=== PATIENT | female | born 1985 | race American Indian/Alaskan Native ===

== ENCOUNTER 2016-07-02 09:37 | Emergency (ER) | payer MEDICAID ==
[2016-07-02 10:34] LABS: Anion Gap 19 mmol/L; BUN/Creatinine Ratio 6.66; Blood Urea Nitrogen 6 mg/dL (7-17); Calcium 9.1 mg/dL (8.4-10.2); Carbon Dioxide 24 mmol/L (22-30); Chloride 100.4 mmol/L (98-107); Glucose 117 mg/dL (65-100); Potassium 3.9 mmol/L (3.6-5.0); Sodium 139 mmol/L (137-145)
--- NOTE | 2016-07-02 10:42 | Emergency Department Report ---
HPI - General Chief Complaint: Abdominal Pain Time Seen by Provider: 07/02/16 10:14 - HPI HPI: This is a 31-year-old Afro-Turkish female who presents to the emergency department from home with concern that she might be . The patient says that her last menstrual cycle was in January. Since that time, in April, she had both urine and blood tests that says she was not . However she says that her breasts have become progressively larger and more sore and that her abdomen has also become larger. She gets some intermittent nausea and vomiting, intermittent abdominal cramps or discomfort. She denies any dysuria, hematuria, vaginal bleeding or discharge, fever. She is not taken anything for her symptoms prior to presentation. She has a primary care physician in [place] but does not have a B[facility]ER. No recent travel or sick contacts at home. She has not taken anything for her symptoms prior to presentation. No known aggravating or alleviating factors. ED Past Medical Hx - Past Medical History Hx Psychiatric Treatment: Yes (ANXIETY) - Surgical History Additional Surgical History: D&C - Social History Smoking Status: Current Every Day Smoker Substance Use Type: None - Medications Home Medications: Home Medications Medication Instructions Recorded Confirmed Last Taken Type HYDROcodone/APAP 5-325 [[place] 1 each PO Q6HR PRN #10 tablet 07/02/16 Unknown Rx 5/325] ED Review of Systems ROS: Stated complaint: VOMITING/HEADACHE/POSS Other details as noted in HPI Comment: All other systems reviewed and negative Constitutional: denies: chills, fever Eyes: denies: eye pain, eye discharge, vision change ENT: denies: ear pain, throat pain Respiratory: denies: cough, shortness of breath, wheezing Cardiovascular: denies: chest pain, palpitations Gastrointestinal: abdominal pain, nausea, vomiting Genitourinary: denies: urgency, dysuria, discharge Musculoskeletal: denies: back pain, joint swelling, arthralgia Skin: denies: rash, lesions Neurological: denies: headache, weakness, paresthesias Physical Exam - Physical Exam Vital Signs: Vital Signs 07/02/16 09:51 Temperature 98.1 F Pulse Rate 86 Respiratory 17 Rate Blood Pressure 127/83 O2 Sat by Pulse 100 Oximetry Physical Exam: GENERAL: The patient is well-developed well-nourished. HEENT: Normocephalic. Atraumatic. Extraocular motions are intact. Patient has moist mucous membranes. Pupils equal reactive to light bilateral. NECK: Supple. Trach is midline. CHEST/LUNGS: Clear to auscultation. There is no respiratory distress noted. HEART/CARDIOVASCULAR: Regular. There is no tachycardia. There is no gallop rub or murmur. ABDOMEN: Abdomen is soft. There is some periumbilical abdominal discomfort that appears to be more within the abdominal wall and/or soft tissue versus peritoneal or retroperitoneal. Patient has normal bowel sounds. Patient has an obese abdomen but no obvious distention. SKIN: Skin is warm and dry. NEURO: The patient is awake, alert, and oriented. The patient is cooperative. The patient has no focal neurologic deficits. The patient has normal speech. MUSCULOSKELETAL: There is no tenderness or deformity. There is no limitation range of motion. There is no evidence of acute injury. ED Course Vital Signs 07/02/16 09:51 Temperature 98.1 F Pulse Rate 86 Respiratory 17 Rate Blood Pressure 127/83 O2 Sat by Pulse 100 Oximetry ED Medical Decision Making - Lab Data Result diagrams: 07/02/16 09:59 07/02/16 09:59 - Medical Decision Making This is a 31-year-old Afro-Turkish female presents to the emergency department with complaint of amenorrhea since January, increasing breast size and some soreness, abdominal discomfort and enlarged abdomen versus abdominal distention. Patient's labs are grossly unremarkable. There is a very mild leukocytosis of 12,000 but that is just above the normal range and there is no left shift. There are no electrolyte abnormalities, renal insufficiency, glucose abnormalities. Belly labs are normal including lipase, bilirubin, LFTs. Urinalysis does not show any urinary tract infection. The patient had negative test with both a urine qualitative and serum quantitative levels. After the was ruled out, a CT of the abdomen and pelvis was done with IV contrast that showed an ovarian cyst but otherwise no acute pathology and certainly does not show any etiology of the patient's discomfort or symptoms. Vital signs stable throughout ED course. The patient appears safe for discharge home. She's been encouraged to follow up with her primary care doctor and [facility]. She will return to the ER with any worsening of her symptoms or any acute distress. - Differential Diagnosis , malignancy, cellulitis, estrogen excess Critical Care Time: No Critical care attestation.: If time is entered above; I have spent that time in minutes in the direct care of this critically ill patient, excluding procedure time. ED Disposition Clinical Impression: Amenorrhea, Soreness breast Abdominal pain Qualifiers: Abdominal location: lower abdomen, unspecified Qualified Code(s): R10.30 - Lower abdominal pain, unspecified Disposition: DISCHARGED TO HOME OR SELFCARE Is pt being admited?: No Condition: Stable Instructions: Breast Self-exam (ED), Abdominal Pain (ED) Additional Instructions: Please follow-up with your primary care doctor in the next few days if possible. It is recommended that she follow-up with an [facility] regarding your ovarian cyst and your lack of a menstrual cycle since January. Return to the emergency department with any acute distress. You've been prescribed a medication that is sedating. Therefore this medication cannot be mixed with alcohol, or taken prior to driving, working, or being responsible for children. Prescriptions: HYDROcodone/APAP 5-325 [[place] 5/325] 1 each PO Q6HR PRN #10 tablet PRN Reason: Pain Referrals: PRIMARY CAREMD [Primary Care Provider] - 3-5 Days PIETER AYALA MD [Staff Physician] - 3-5 Days Time of Disposition: 13:51
[2016-07-02 11:01] LABS: Basophils % (Auto) 0.3 % (0.0-1.8); Hematocrit 41.2 % (30.3-42.9); Hemoglobin 13.2 gm/dl (10.1-14.3); Mean Corpuscular HGB Conc 32 % (30-34); Mean Corpuscular Hemoglobin 26 pg (28-32); Mean Corpuscular Volume 82 fl (79-97); Platelet Count 403 K/mm3 (140-440); Red Blood Count 5.05 M/mm3 (3.65-5.03); Red Cell Distribution Width 15.9 % (13.2-15.2); White Blood Count 12.8 K/mm3 (4.5-11.0)
[2016-07-02 11:07] LABS: Bilirubin,Urine NEG (Negative); Blood,Urine NEG (Negative); Ketones,Urine NEG (Negative); Leukocyte Esterase,Urine NEG (Negative); Nitrite,Urine NEG (Negative); Protein,Urine <15 mg/dL mg/dL (Negative); Urobilinogen,Urine < 2.0 mg/dL (<2.0)
[2016-07-02] MEDS ORDERED: MORPHINE IV ONE ×2 (11:45→13:49)
[2016-07-02] MEDS ORDERED: NACL ONE (12:13)
--- NOTE | 2016-07-02 13:39 | Cat Scan Report ---
CT SCAN OF THE ABDOMEN AND PELVIS WITH CONTRAST: HISTORY: Abdominal pain. TECHNIQUE: Helical CT in 1.25mm intervals following IV contrast. Sagittal and coronal reconstructions. FINDINGS: The liver is normal in size and is without focal defect. No gallstones or biliary dilatation are noted. The spleen and pancreas demonstrate a normal size and attenuation with no evidence of abnormal mass. The kidneys are normal in size and position with no evidence of hydronephrosis or mass. The adrenal glands are normal. There is no intestinal obstruction or ascites. Normal appendix. The abdominal aorta is normal. The uterus and right adnexa are unremarkable. A 2.9 x 2.4 cm cyst is identified in the left ovary. There is no evidence of peritoneal air or fluid. There is no evidence of any abnormal masses or fluid collections within the pelvis. No adenopathy is identified. The bladder is normal. IMPRESSION: 2.9 x 2.4 cm left ovarian cyst. No acute inflammatory process.
[2016-07-02 14:05] VITALS: BP 139/77
== END 2016-07-02 14:04 | disposition home or self-care (01) ==
LOC: ED 09:37
DX: N91.2 Amenorrhea, unspecified (principal); R10.30 Lower abdominal pain, unspecified; N64.4 Mastodynia; F41.9 Anxiety disorder, unspecified; F17.200 Nicotine dependence, unspecified, uncomplicated; Z88.8 Allergy status to other drugs, medicaments and biological substances
CPT/HCPCS: 36415; 74177; 80048; 81001; 82962; 84702; 84703; 85025; 96374; 96376; 99284; J2270; Q9967

== ENCOUNTER 2016-12-28 06:08 | Emergency (ER) | payer MEDICAID ==
[2016-12-28 06:54] LABS: Basophils % (Auto) 0.4 % (0.0-1.8); Hematocrit 36.1 % (30.3-42.9); Hemoglobin 11.8 gm/dl (10.1-14.3); Mean Corpuscular HGB Conc 33 % (30-34); Mean Corpuscular Hemoglobin 26 pg (28-32); Mean Corpuscular Volume 80 fl (79-97); Platelet Count 433 K/mm3 (140-440); Red Cell Distribution Width 17.7 % (13.2-15.2); White Blood Count 13.5 K/mm3 (4.5-11.0)
[2016-12-28 07:09] LABS: Anion Gap 18 mmol/L; BUN/Creatinine Ratio 11; Blood Urea Nitrogen 8 mg/dL (7-17); Calcium 8.7 mg/dL (8.4-10.2); Carbon Dioxide 20 mmol/L (22-30); Chloride 106.5 mmol/L (98-107); Glucose 108 mg/dL (65-100); Potassium 3.8 mmol/L (3.6-5.0); Sodium 141 mmol/L (137-145)
[2016-12-28 08:02] LABS: Bacteria,Urine 1+ /HPF (Negative); Bilirubin,Urine NEG (Negative); Blood,Urine SM (Negative); Ketones,Urine NEG (Negative); Leukocyte Esterase,Urine LG (Negative); Mucus,Urine FEW /HPF; Nitrite,Urine NEG (Negative); Protein,Urine <15 mg/dL mg/dL (Negative); Urobilinogen,Urine < 2.0 mg/dL (<2.0)
[2016-12-28] MEDS ORDERED: ZOFRAN ONE (08:17)
[2016-12-28] MEDS ORDERED: ZOFRAN IV ONE ×2 (08:31→10:38)
[2016-12-28] MEDS ORDERED: DILAUDID IV ONE (09:02)
[2016-12-28] MEDS ORDERED: BENADRYL IV ONE (09:02)
--- NOTE | 2016-12-28 09:54 | Cat Scan Report ---
CT ABDOMEN AND PELVIS WITH CONTRAST: 12/28/16 06:08:00 CLINICAL: Abdominal pain. COMPARISON: 07/02/16 TECHNIQUE: Volumetric acquisition and 1.25 millimeter scan reconstructions after the uneventful intravenous injection of 100 cc Omnipaque 300. Consent was obtained prior to the administration of contrast. Oral contrast was not given. FINDINGS: Abdomen: Clear lung bases.Normal liver, bile ducts and gallbladder. Normal stomach, duodenum, pancreas and spleen. Normal adrenal glands and kidneys. Normal nondilated renal collecting systems and ureters. No urinary calculus, mass or cyst. Normal aorta and inferior vena cava. Normal small bowel.Normal ascending, transverse and descending colon. The appendix is well imaged and normal. No mass, lymphadenopathy or ascites.No pneumoperitoneum. Pelvis: Normal uterus, urinary bladder and rectum. Normal ovaries with small follicles in each ovary. No adnexal mass or free fluid. Normal sigmoid colon. Bone windows demonstrate no bone lesion. IMPRESSION:Normal abdomen and pelvis.
[2016-12-28] MEDS ORDERED: IMODIUM PO ONE (10:38)
[2016-12-28] MEDS ORDERED: NACL 0.9% 1000 ML 1,000 ML IV ONE (10:38)
[2016-12-28] MEDS ORDERED: BENTYL IM ONE (10:38)
[2016-12-28 10:41] LABS: Alanine Aminotransferase 16 units/L (7-56); Albumin/Globulin Ratio 1.4 %; Alkaline Phosphatase 80 units/L (35-129); Bilirubin,Total < 0.20 mg/dL (0.1-1.2); Lipase 33 units/L (13-60); Total Protein 6.8 g/dL (6.3-8.2)
[2016-12-28 10:44] LABS: Bilirubin,Direct < 0.2 mg/dL (0-0.2)
--- NOTE | 2016-12-28 11:06 | Emergency Department Report ---
ED N/V/D HPI - General Chief complaint: Nausea/Vomiting/Diarrhea Stated complaint: ABD PAIN Time Seen by Provider: 12/28/16 10:19 Source: patient Mode of arrival: Ambulatory Limitations: No Limitations - History of Present Illness Initial comments: 31-year-old female with a history of hypertension presents to the hospital with complaints of abdominal pain, nausea, vomiting, and diarrhea 2 days. Patient had greater than 10 episodes of vomiting and even more episodes of diarrhea. She denies melena, hematochezia, hematemesis or fever. Her daughter was sick with similar symptoms last week. No travel or recent antibiotic use reported. Patient describes pain in the mid abdomen as sharp and feeling like "labor pains ". Pain is rated a sensitivity in intensity. Worse with palpation. No alleviating factors. - Related Data Previous Rx's Medication Instructions Recorded Last Taken Type Dicyclomine [Bentyl] 10 mg PO QID #16 capsule 12/28/16 Unknown Rx HYDROcodone/APAP 5-325 [[place] 1 each PO Q6HR PRN #10 tablet 12/28/16 Unknown Rx 5-325 mg TAB] Loperamide [Imodium] 2 mg PO Q2HR PRN #15 capsule 12/28/16 Unknown Rx Ondansetron [Zofran Odt] 4 mg PO Q8HR PRN #20 tab.rapdis 12/28/16 Unknown Rx Allergies Allergy/AdvReac Type Severity Reaction Status Date / Time tramadol AdvReac SHAKE/ Verified 07/02/16 09:48 TWITCH ED Review of Systems ROS: Stated complaint: ABD PAIN Other details as noted in HPI Comment: All other systems reviewed and negative Other: Constitutional: No fevers chills Eyes: No eye pain visual changes or discharge ENT: No ear pain or throat pain Neck: Denies pain Respiratory: Denies cough wheezing shortness of breath Cardiovascular: Denies chest pain, palpitations, syncope GI: As per HPI : Denies dysuria Musculoskeletal: Denies back pain, joint swelling Skin: Denies rash, lesions, erythema Neurologic: Denies headache, numbness, weakness Psychiatric: Denies suicidal ideation, hallucinations ED Past Medical Hx - Past Medical History Previous Medical History?: Yes Hx Hypertension: Yes Hx Psychiatric Treatment: Yes (ANXIETY) - Surgical History Past Surgical History?: Yes Additional Surgical History: D&C - Social History Smoking Status: Former Smoker Substance Use Type: Alcohol, Marijuana - Medications Home Medications: Home Medications Medication Instructions Recorded Confirmed Last Taken Type Dicyclomine [Bentyl] 10 mg PO QID #16 capsule 12/28/16 Unknown Rx HYDROcodone/APAP 5-325 [[place] 1 each PO Q6HR PRN #10 tablet 12/28/16 Unknown Rx 5-325 mg TAB] Loperamide [Imodium] 2 mg PO Q2HR PRN #15 capsule 12/28/16 Unknown Rx Ondansetron [Zofran Odt] 4 mg PO Q8HR PRN #20 tab.rapdis 12/28/16 Unknown Rx ED Physical Exam - General Limitations: No Limitations - Other Other exam information: General: No limitations, patient is alert in no acute distress Head exam: Atraumatic, normocephalic Eyes exam: Normal appearance, pupils equal reactive to light, extraocular movements intact ENT: Moist mucous membrane, normal oropharynx Neck exam: Normal inspection, full range of motion, no meningismus nontender Respiratory exam: Clear to auscultation bilateral, no wheezes, rales, crackles Cardiovascular: Normal rate and rhythm, normal heart sounds Abdomen: Soft, nondistended, midabdominal tenderness, with normal bowel sounds, no rebound, or guarding Extremity: Full range of motion normal inspection no deformity Back: Normal Inspection, full range of motion, no tenderness Neurologic: Alert, oriented x3, cranial nerves intact, no motor or sensory deficit Psychiatric: normal affect, normal mood Skin: Warm, dry, intact ED Course Vital Signs 12/28/16 12/28/16 12/28/16 06:15 07:47 08:00 Temperature 98.3 F Pulse Rate 99 H 87 82 Respiratory 20 20 21 Rate Blood Pressure 115/61 110/66 Blood Pressure [Right] O2 Sat by Pulse 99 99 98 Oximetry 12/28/16 12/28/16 12/28/16 08:01 08:03 11:10 Temperature 98.4 F Pulse Rate 87 82 Respiratory 17 17 14 Rate Blood Pressure Blood Pressure 110/66 125/77 [Right] O2 Sat by Pulse 100 Oximetry - Reevaluation(s) Reevaluation #1: 12/28/16 11:04 Patient received Benadryl, Zofran, and Dilaudid prior to my evaluation on for some improvement in pain for persistent pain. Nausea has improved 12/28/16 12:18 Patient's pain fairly improved until an additional dose of Zofran. Patient received some of her order IV fluids and does not want to wait for the rest. She tolerated by mouth and hydrate orally ED Medical Decision Making - Lab Data Result diagrams: 12/28/16 06:36 12/28/16 06:36 Lab Results 12/28/16 12/28/16 12/28/16 Range/Units 06:23 06:36 06:36 WBC 13.5 H (4.5-11.0) K/mm3 RBC 4.50 (3.65-5.03) M/mm3 Hgb 11.8 (10.1-14.3) gm/dl Hct 36.1 (30.3-42.9) % MCV 80 (79-97) fl MCH 26 L (28-32) pg MCHC 33 (30-34) % RDW 17.7 H (13.2-15.2) % Plt Count 433 (140-440) K/mm3 Lymph % (Auto) 32.1 (13.4-35.0) % [place] % (Auto) 4.2 (0.0-7.3) % Eos % (Auto) 1.0 (0.0-4.3) % Baso % (Auto) 0.4 (0.0-1.8) % Lymph # 4.4 (1.2-5.4) K/mm3 [place] # 0.6 (0.0-0.8) K/mm3 Eos # 0.1 (0.0-0.4) K/mm3 Baso # 0.1 (0.0-0.1) K/mm3 Seg Neutrophils % 62.3 (40.0-70.0) % Seg Neutrophils # 8.4 H (1.8-7.7) K/mm3 Sodium 141 (137-145) mmol/L Potassium 3.8 (3.6-5.0) mmol/L Chloride 106.5 (98-107) mmol/L Carbon Dioxide 20 L (22-30) mmol/L Anion Gap 18 mmol/L BUN 8 (7-17) mg/dL Creatinine 0.7 (0.7-1.2) mg/dL Estimated GFR > 60 ml/min BUN/Creatinine Ratio 11 % Glucose 108 H (65-100) mg/dL POC Glucose 99 (70-105) Calcium 8.7 (8.4-10.2) mg/dL Total Bilirubin (0.1-1.2) mg/dL Direct Bilirubin (0-0.2) mg/dL AST (5-40) units/L ALT (7-56) units/L Alkaline Phosphatase (35-129) units/L Total Protein (6.3-8.2) g/dL Albumin (3.9-5) g/dL Albumin/Globulin Ratio % Lipase (13-60) units/L HCG, Quant (0-4) mIU/mL Urine Color (Yellow) Urine Turbidity (Clear) Urine pH (5.0-7.0) Ur Specific [place] (1.003-1.030) Urine Protein (Negative) mg/dL Urine Glucose (UA) (Negative) mg/dL Urine Ketones (Negative) mg/dL Urine Blood (Negative) Urine Nitrite (Negative) Urine Bilirubin (Negative) Urine Urobilinogen (<2.0) mg/dL Ur Leukocyte Esterase (Negative) Urine WBC (Auto) (0.0-6.0) /HPF Urine RBC (Auto) (0.0-6.0) /HPF U Epithel Cells (Auto) (0-13.0) /HPF Urine Bacteria (Auto) (Negative) /HPF Urine Mucus /HPF 12/28/16 12/28/16 12/28/16 Range/Units 06:36 06:36 07:39 WBC (4.5-11.0) K/mm3 RBC (3.65-5.03) M/mm3 Hgb (10.1-14.3) gm/dl Hct (30.3-42.9) % MCV (79-97) fl MCH (28-32) pg MCHC (30-34) % RDW (13.2-15.2) % Plt Count (140-440) K/mm3 Lymph % (Auto) (13.4-35.0) % [place] % (Auto) (0.0-7.3) % Eos % (Auto) (0.0-4.3) % Baso % (Auto) (0.0-1.8) % Lymph # (1.2-5.4) K/mm3 [place] # (0.0-0.8) K/mm3 Eos # (0.0-0.4) K/mm3 Baso # (0.0-0.1) K/mm3 Seg Neutrophils % (40.0-70.0) % Seg Neutrophils # (1.8-7.7) K/mm3 Sodium (137-145) mmol/L Potassium (3.6-5.0) mmol/L Chloride (98-107) mmol/L Carbon Dioxide (22-30) mmol/L Anion Gap mmol/L BUN (7-17) mg/dL Creatinine (0.7-1.2) mg/dL Estimated GFR ml/min BUN/Creatinine Ratio % Glucose (65-100) mg/dL POC Glucose (70-105) Calcium (8.4-10.2) mg/dL Total Bilirubin < 0.20 (0.1-1.2) mg/dL Direct Bilirubin < 0.2 (0-0.2) mg/dL AST 19 (5-40) units/L ALT 16 (7-56) units/L Alkaline Phosphatase 80 (35-129) units/L Total Protein 6.8 (6.3-8.2) g/dL Albumin 4.0 (3.9-5) g/dL Albumin/Globulin Ratio 1.4 % Lipase 33 (13-60) units/L HCG, Quant < 2 (0-4) mIU/mL Urine Color Yellow (Yellow) Urine Turbidity Clear (Clear) Urine pH 5.0 (5.0-7.0) Ur Specific [place] 1.020 (1.003-1.030) Urine Protein <15 mg/dl (Negative) mg/dL Urine Glucose (UA) Neg (Negative) mg/dL Urine Ketones Neg (Negative) mg/dL Urine Blood Sm (Negative) Urine Nitrite Neg (Negative) Urine Bilirubin Neg (Negative) Urine Urobilinogen < 2.0 (<2.0) mg/dL Ur Leukocyte Esterase Lg (Negative) Urine WBC (Auto) 5.0 (0.0-6.0) /HPF Urine RBC (Auto) 9.0 (0.0-6.0) /HPF U Epithel Cells (Auto) 16.0 H (0-13.0) /HPF Urine Bacteria (Auto) 1+ (Negative) /HPF Urine Mucus Few /HPF - Radiology Data Radiology results: report reviewed (CT abdomen and pelvis IV contrast: Normal) - Medical Decision Making Plan to discharge patient home with symptomatic for gastroenteritis. Labs and CT unremarkable. Patient felt much better with ED treatment and tolerating by mouth. - Differential Diagnosis gastroenteritis, appendicitis, hepatitis, Critical Care Time: No Critical care attestation.: If time is entered above; I have spent that time in minutes in the direct care of this critically ill patient, excluding procedure time. ED Disposition Clinical Impression: Gastroenteritis Disposition: DC-01 TO HOME OR SELFCARE Is pt being admited?: No Does the pt Need Aspirin: No Condition: Stable Instructions: Gastroenteritis (ED) Additional Instructions: Taken the medication as prescribed. Return if symptoms worsen. Follow-up with the primary care doctor or clinic for further evaluation. Prescriptions: Dicyclomine [Bentyl] 10 mg PO QID #16 capsule HYDROcodone/APAP 5-325 [[place] 5-325 mg TAB] 1 each PO Q6HR PRN #10 tablet PRN Reason: Pain Loperamide [Imodium] 2 mg PO Q2HR PRN #15 capsule PRN Reason: Diarrhea Ondansetron [Zofran Odt] 4 mg PO Q8HR PRN #20 tab.rapdis PRN Reason: Acne Referrals: REEMA RUBIN [Other] - 3-5 Days Time of Disposition: 12:24
[2016-12-28 12:23] VITALS: BP 119/68
== END 2016-12-28 12:48 | disposition home or self-care (01) ==
LOC: ED 06:08
DX: K21.9 Gastro-esophageal reflux disease without esophagitis (principal); I10 Essential (primary) hypertension; F12.10 Cannabis abuse, uncomplicated; F17.200 Nicotine dependence, unspecified, uncomplicated; Z88.6 Allergy status to analgesic agent
CPT/HCPCS: 36415; 74177; 80048; 80074; 81001; 82962; 83690; 84702; 85025; 96361; 96372; 96374; 96375; 96376; 99284; J0500; J1170; J1200; J2405; J7030; Q9967

== ENCOUNTER 2019-01-03 18:56 | Emergency (ER) | payer MEDICAID, SELFPAY ==
--- NOTE | 2019-01-03 19:09 | Event Note ---
ED Screening Note Date of service: 01/03/19 Time: 19:03 ED Screening Note: Reports nausea and vomitting that started this morning. Reports diarrhea x 6 today. Vomit x 8 today and cannot keep water down, Reports chills. Reports abdominal pain all over stomach. Reports that she ate [employer]. LMP . Gen:A&O x3 nad VSS, afeb ABD: soft,mild tenderness to palpate . NL BS Nausea/vomitting/diarrhea abdominal pain This initial assessment/diagnostic orders/clinical plan/treatment(s) is/are subject to change based on patients health status, clinical progression and re- assessment by fellow clinical providers in the ED. Further treatment and workup at subsequent clinical providers discretion. Patient/guardian urged not to elope from the ED as their condition may be serious if not clinically assessed and managed. Initial orders include: labs
[2019-01-03] MEDS ORDERED: ONDANSETRON 4 MG/2 ML INJ IV ONE (19:46)
[2019-01-03] MEDS ORDERED: SODIUM CHLORIDE 0.9% 1000 ML 1,000 ML IV ONE (19:46)
[2019-01-03] MEDS ORDERED: MORPHINE 4 MG/1 ML INJ IV ONE (19:46)
[2019-01-03 20:11] LABS: Basophils % (Auto) 0.4 % (0.0-1.8); Eosinophils # (Auto) 0.1 K/mm3 (0.0-0.4); Eosinophils % (Auto) 0.6 % (0.0-4.3); Hematocrit 36.3 % (30.3-42.9); Hemoglobin 11.6 gm/dl (10.1-14.3); Lymphocytes # (Auto) 3.8 K/mm3 (1.2-5.4); Lymphocytes % (Auto) 29.3 % (13.4-35.0); Mean Corpuscular HGB Conc 32 % (30-34); Mean Corpuscular Volume 76 fl (79-97); Monocytes # (Auto) 0.4 K/mm3 (0.0-0.8); Monocytes % (Auto) 3.2 % (0.0-7.3); Platelet Count 412 K/mm3 (140-440); Red Blood Count 4.79 M/mm3 (3.65-5.03)
[2019-01-03 20:19] LABS: Bilirubin,Urine NEG (Negative); Blood,Urine NEG (Negative); Color,Urine Amber (Yellow); Mucus,Urine 3+ /HPF
[2019-01-03 20:22] LABS: Red Cell Distribution Width 20.3 % (13.2-15.2)
[2019-01-03 20:27] LABS: Alanine Aminotransferase 17 units/L (7-56); Albumin 3.9 g/dL (3.9-5); BUN/Creatinine Ratio 7; Blood Urea Nitrogen 8 mg/dL (7-17); Calcium 8.8 mg/dL (8.4-10.2); Hemolysis Index 5
--- NOTE | 2019-01-03 20:41 | Emergency Department Report ---
ED N/V/D HPI - General Chief complaint: Nausea/Vomiting/Diarrhea Stated complaint: FLU SX Time Seen by Provider: 01/03/19 19:02 Source: patient Mode of arrival: Ambulatory Limitations: No Limitations - History of Present Illness Initial comments: Reports nausea and vomiting that started this morning. Reports diarrhea x 6 today. Vomit x 8 today and cannot keep water down, Reports chills. Reports abdominal pain all over stomach. Reports that she ate Gambino. LMP 12/28/2018. complaint: nausea, vomiting, diarrhea -: This morning Description of Vomiting: food contents Description of Diarrhea: water Associated Abdominal Pain: Yes Location: diffuse Severity: severe Pain Scale: 8 Quality: cramping, aching, sharp Consistency: constant Improves with: eating Worsens with: none Associated Symptoms: fever/chills (chills), nausea/vomiting - Related Data Previous Rx's Medication Instructions Recorded Last Taken Type Dicyclomine [Bentyl] 10 mg PO QID #16 capsule 12/28/16 Unknown Rx HYDROcodone/APAP 5-325 [[place] 1 each PO Q6HR PRN #10 tablet 12/28/16 Unknown Rx 5-325 mg TAB] Loperamide [Imodium] 2 mg PO Q2HR PRN #15 capsule 12/28/16 Unknown Rx Ondansetron [Zofran Odt] 4 mg PO Q8HR PRN #20 tab.rapdis 12/28/16 Unknown Rx Ondansetron [Zofran Odt] 4 mg PO Q8HR PRN #6 tab.rapdis 01/03/19 Unknown Rx Allergies Allergy/AdvReac Type Severity Reaction Status Date / Time tramadol AdvReac SHAKE/ Verified 07/02/16 09:48 TWITCH ED Review of Systems ROS: Stated complaint: FLU SX Other details as noted in HPI Comment: All other systems reviewed and negative ED Past Medical Hx - Past Medical History Previous Medical History?: Yes Hx Hypertension: Yes Hx Psychiatric Treatment: Yes (ANXIETY) - Surgical History Past Surgical History?: Yes Additional Surgical History: D&C - Social History Smoking Status: Former Smoker Substance Use Type: None - Medications Home Medications: Home Medications Medication Instructions Recorded Confirmed Last Taken Type Dicyclomine [Bentyl] 10 mg PO QID #16 capsule 12/28/16 Unknown Rx HYDROcodone/APAP 5-325 [[place] 1 each PO Q6HR PRN #10 tablet 12/28/16 Unknown Rx 5-325 mg TAB] Loperamide [Imodium] 2 mg PO Q2HR PRN #15 capsule 12/28/16 Unknown Rx Ondansetron [Zofran Odt] 4 mg PO Q8HR PRN #20 tab.rapdis 12/28/16 Unknown Rx Ondansetron [Zofran Odt] 4 mg PO Q8HR PRN #6 tab.rapdis 01/03/19 Unknown Rx ED Physical Exam - General Limitations: No Limitations General appearance: alert, in no apparent distress - Head Head exam: Present: atraumatic, normocephalic - Eye Eye exam: Present: normal appearance - ENT ENT exam: Present: mucous membranes moist - Neck Neck exam: Present: normal inspection - Respiratory Respiratory exam: Present: normal lung sounds bilaterally. Absent: respiratory distress - Cardiovascular Cardiovascular Exam: Present: regular rate, normal rhythm. Absent: systolic murmur, diastolic murmur, rubs, gallop - GI/Abdominal GI/Abdominal exam: Present: soft, normal bowel sounds. Absent: distended, tenderness - Extremities Exam Extremities exam: Present: normal inspection - Back Exam Back exam: Present: normal inspection - Neurological Exam Neurological exam: Present: alert, oriented X3, normal gait - Psychiatric Psychiatric exam: Present: normal affect, normal mood - Skin Skin exam: Present: warm, dry, intact, normal color. Absent: rash ED Course Vital Signs 01/03/19 01/03/19 01/03/19 19:08 20:18 20:48 Temperature 98.2 F Pulse Rate 76 Respiratory 18 16 16 Rate Blood Pressure 134/89 O2 Sat by Pulse 100 Oximetry 01/03/19 21:47 Temperature Pulse Rate Respiratory 16 Rate Blood Pressure O2 Sat by Pulse Oximetry ED Medical Decision Making - Lab Data Result diagrams: 01/03/19 19:48 01/03/19 19:48 Laboratory Results - last 72 hr 01/03/19 01/03/19 01/03/19 19:48 19:48 19:48 WBC 12.9 H RBC 4.79 Hgb 11.6 Hct 36.3 MCV 76 L MCH 24 L MCHC 32 RDW 20.3 H Plt Count 412 Lymph % (Auto) 29.3 [place] % (Auto) 3.2 Eos % (Auto) 0.6 Baso % (Auto) 0.4 Lymph # 3.8 [place] # 0.4 Eos # 0.1 Baso # 0.0 Seg Neutrophils % 66.5 Seg Neutrophils # 8.6 H Sodium 137 Potassium 3.6 Chloride 103.9 Carbon Dioxide 21 L Anion Gap 16 BUN 8 Creatinine 1.1 Estimated GFR > 60 BUN/Creatinine Ratio 7 Glucose 115 H Calcium 8.8 Total Bilirubin 0.20 AST 20 ALT 17 Alkaline Phosphatase 63 Total Protein 6.5 Albumin 3.9 Albumin/Globulin Ratio 1.5 Lipase 21 HCG, Qual Negative Urine Color Urine Turbidity Urine pH Ur Specific [place] Urine Protein Urine Glucose (UA) Urine Ketones Urine Blood Urine Nitrite Urine Bilirubin Urine Urobilinogen Ur Leukocyte Esterase Urine WBC (Auto) Urine RBC (Auto) U Epithel Cells (Auto) Urine Mucus 01/03/19 19:56 WBC RBC Hgb Hct MCV MCH MCHC RDW Plt Count Lymph % (Auto) [place] % (Auto) Eos % (Auto) Baso % (Auto) Lymph # [place] # Eos # Baso # Seg Neutrophils % Seg Neutrophils # Sodium Potassium Chloride Carbon Dioxide Anion Gap BUN Creatinine Estimated GFR BUN/Creatinine Ratio Glucose Calcium Total Bilirubin AST ALT Alkaline Phosphatase Total Protein Albumin Albumin/Globulin Ratio Lipase HCG, Qual Urine Color [place] Urine Turbidity Slightly-cloudy Urine pH 5.0 Ur Specific [place] 1.033 H Urine Protein 30 mg/dl Urine Glucose (UA) Neg Urine Ketones Neg Urine Blood Neg Urine Nitrite Neg Urine Bilirubin Neg Urine Urobilinogen 2.0 Ur Leukocyte Esterase Sm Urine WBC (Auto) 3.0 Urine RBC (Auto) 8.0 U Epithel Cells (Auto) 23.0 H Urine Mucus 3+ - Medical Decision Making Reports nausea and vomiting that started this morning. Reports diarrhea x 6 today. Vomit x 8 today and cannot keep water down, Reports chills. Reports abdominal pain all over stomach. Reports that she ate [place]. LMP 12/28/2018. Critical care attestation.: If time is entered above; I have spent that time in minutes in the direct care of this critically ill patient, excluding procedure time. ED Disposition Clinical Impression: Gastroenteritis Disposition: [id number] TO HOME OR SELFCARE Is pt being admited?: No Does the pt Need Aspirin: No Condition: Stable Instructions: Gastroenteritis (ED), Food Poisoning (ED) Prescriptions: Ondansetron [Zofran Odt] 4 mg PO Q8HR PRN #6 tab.rapdis PRN Reason: Nausea And Vomiting Referrals: PRIMARY CARE, [Primary Care Provider] - 3-5 Days
[2019-01-03] MEDS ORDERED: KETOROLAC 30 MG/1 ML INJ IV ONE (21:13)
[2019-01-03] MEDS ORDERED: KETOROLAC 30 MG/1 ML INJ ONE (21:16)
[2019-01-03 23:14] VITALS: BP 156/82
== END 2019-01-03 21:47 | disposition home or self-care (01) ==
LOC: ED 18:56
DX: K52.9 Noninfective gastroenteritis and colitis, unspecified (principal); I10 Essential (primary) hypertension
CPT/HCPCS: 36415; 80053; 81001; 83690; 84703; 85025; 96361; 96374; 96375; 99283; J1885; J2270; J2405; J7030